=== PATIENT | female | born 1980 | race Caucasian/White ===

== ENCOUNTER 2016-11-13 12:40 | Emergency (ER) | payer OTHER ==
[~2016-11-13] VITALS: Ht 177.8 cm; Wt 99.3 kg
[2016-11-13 16:43] LABS: BASOPHIL % 0.4 % (0-2); PLATELET COUNT 239 x10^3mcL (130-400); RED CELL DISTRIBUTION WIDTH 13.8 % (11.5-14.5)
[2016-11-13 16:44] LABS: CALCIUM 9.7 mg/dL (8.5-10.1); CARBON DIOXIDE 26.5 mmol/L (21-32); CHLORIDE SERUM 106 mmol/L (98-107); CREATININE SERUM 0.9 mg/dL (0.6-1.0); GFR1 > 60 mL/min; GLUCOSE SERUM 100 mg/dL (74-106); POTASSIUM SERUM 3.9 mmol/L (3.5-5.1); SODIUM SERUM 142 mmol/L (136-145)
[2016-11-13 16:54] LABS: microscopic required? NO
[2016-11-13 16:57] LABS: ALKALINE PHOSPHATASE 65 U/L (46-116); AST/SGOT 8 U/L (15-37); BILIRUBIN TOTAL 0.38 mg/dL (0.20-1.00); T4(THYROXINE) 8.7 ug/dL (4.7-13.3)
[2016-11-13 17:06] LABS: ALT/SGPT 24 U/L (14-59); TOTAL PROTEIN, SERUM 8.5 g/dL (6.4-8.2)
[2016-11-13 17:10] LABS: UA SPECIFIC GRAVITY 1.015 (1.005-1.035); urine erythrocyte NEGATIVE (NEGATIVE)
[2016-11-13 18:35] VITALS: BP 128/75
== END 2016-11-13 18:35 | disposition home or self-care (01) ==
LOC: ED 12:40
PROVIDERS: Emergency Medicine
DX: R06.00 Dyspnea, unspecified (principal); R53.83 Other fatigue; R14.0 Abdominal distension (gaseous); R13.10 Dysphagia, unspecified; F41.9 Anxiety disorder, unspecified; Z88.2 Allergy status to sulfonamides; Z88.1 Allergy status to other antibiotic agents; Z88.5 Allergy status to narcotic agent; F43.10 Post-traumatic stress disorder, unspecified
CPT/HCPCS: 36415; Q0092

== ENCOUNTER 2016-12-27 08:06 | Emergency (ER) | payer OTHER ==
[~2016-12-27] VITALS: Ht 177.8 cm; Wt 100.2 kg
[2016-12-27 09:39] VITALS: BP 120/65
== END 2016-12-27 10:52 | disposition home or self-care (01) ==
LOC: ED 08:06
DX: H57.13 Ocular pain, bilateral (principal); M79.7 Fibromyalgia; Z88.1 Allergy status to other antibiotic agents; Z88.2 Allergy status to sulfonamides

== ENCOUNTER 2017-04-10 12:13 | Emergency (ER) | payer OTHER ==
[~2017-04-10] VITALS: Ht 177.8 cm; Wt 103.9 kg
[2017-04-10 12:34] VITALS: Ht 177.8 cm; Wt 103.9 kg
[2017-04-10 15:43] VITALS: BP 129/72
== END 2017-04-10 15:43 | disposition home or self-care (01) ==
LOC: ED 12:13
DX: J06.9 Acute upper respiratory infection, unspecified (principal); R19.7 Diarrhea, unspecified; J02.9 Acute pharyngitis, unspecified; F43.10 Post-traumatic stress disorder, unspecified